=== PATIENT | female | born 1960 | race American Indian/Alaskan Native ===

== ENCOUNTER 2017-01-18 11:30 | Outpatient (CLI) | payer BC ==
--- NOTE | 2017-01-18 15:36 | Mammography Report ---
BILATERAL DIGITAL SCREENING MAMMOGRAM with CAD: 01/18/17 11:30:00 CLINICAL: Routine screening. COMPARISON:10/31/12 and 11/29/10 FINDINGS: The breasts are almost entirely fatty. A left upper outer irregular mass with a few calcifications requires additional imaging.No architectural distortion. The right breast is negative. IMPRESSION: Left upper outer mass requiring further workup. BI-RADS CATEGORY: 0 -- Additional Imaging Evaluation Required RECOMMENDATION: Recall for left mediolateral , spot magnification CC and ML views and left breast ultrasound. ACR BI-RADS MAMMOGRAPHIC CODES: 0 = Needs additional imaging evaluation; 1 = Negative; 2 = Benign; 3 = Probably benign; 4 = Suspicious; 5 = Malignant; 6 = Known biopsy-proven malignancy COMMENT: 1. Dense breast tissue, i.e., adenosis, fibrocystic changes, etc., may obscure an underlying neoplasm. 2. Approximately 10% of cancers are not detected with mammography. 3. A negative mammography report should not delay biopsy if a clinically suspicious mass is present. COMMENT: Patient follow-up letters are generated via our Fetch MD application.
== END 2017-01-18 11:31 | disposition home or self-care (01) ==
LOC: SPVIMAG 11:30
PROVIDERS: ATTEND Pediatrics
DX: Z12.31 Encounter for screening mammogram for malignant neoplasm of breast (principal)
CPT/HCPCS: 77067; G0202

== ENCOUNTER 2020-01-20 11:18 | Outpatient (CLI) | payer BC | END 2020-01-20 11:19 | disposition home or self-care (01) | LOC: LABHHL 11:18 | PROVIDERS: ATTEND Surgery | DX: C50.912 Malignant neoplasm of unspecified site of left female breast (principal) | CPT/HCPCS: 88342 ==

== ENCOUNTER 2020-01-26 15:37 | Outpatient (CLI) | payer BC ==
--- NOTE | 2020-01-27 08:24 | Ultrasound Report ---
COMPLETE LEFT BREAST ULTRASOUND HISTORY: Recently diagnosed left breast cancer. This study is being done to exclude additional diseas e. COMPARISON: Recent mammogram and targeted left breast ultrasound from [facility]. FINDINGS: Ultrasound of all 4 quadrants, the retroareolar area and the axilla was performed. Irregula r mass at 2:00 8 cm from the nipple measures 1.1 x 0.7 x 0.7 cm and corresponds to the known cancer. Relatively anechoic cyst at 1:30 o'clock 7 cm from the nipple measures 1.0 x 0.3 x 1.3 cm and a compl ex cyst at 1:00 4 cm from the nipple measures 5 x 5 x 2 mm. Ultrasound of the left axilla demonstrate d no suspicious lymph nodes. A left axillary lymph node with benign morphology measures 1.3 cm x 0.7 cm with a cortical thickness of 3 mm. IMPRESSION: 1. Known 1.1 cm left breast cancer at 2:00 8 cm from the nipple. 2. Benign cysts at 1:30 o'clock and at 1:00. 3. No suspicious lymph nodes. BIRADS 6: Known biopsy proven malignancy. Signer Name: Alcides Sheppard MD Signed: 01/27/2020 8:19 AM Workstation Name: [id number]
== END 2020-01-26 15:38 | disposition home or self-care (01) ==
LOC: SPVWC 15:37
PROVIDERS: ATTEND Surgery
DX: N63.21 Unspecified lump in the left breast, upper outer quadrant (principal); N60.02 Solitary cyst of left breast

== ENCOUNTER 2020-02-24 12:12 | Day surgery (SDC) | payer BC ==
[2020-02-22 10:00] LABS: Basophils # (Auto) 0.1 K/mm3 (0.0-0.1); Basophils % (Auto) 0.9 % (0.0-1.8); Eosinophils # (Auto) 0.1 K/mm3 (0.0-0.4); Eosinophils % (Auto) 1.4 % (0.0-4.3); Hematocrit 44.5 % (30.3-42.9); Hemoglobin 15.3 gm/dl (10.1-14.3); Lymphocytes # (Auto) 2.5 K/mm3 (1.2-5.4); Lymphocytes % (Auto) 35.2 % (13.4-35.0); Mean Corpuscular HGB Conc 35 % (30-34); Mean Corpuscular Volume 92 fl (79-97); Monocytes # (Auto) 0.6 K/mm3 (0.0-0.8); Monocytes % (Auto) 8.7 % (0.0-7.3); Platelet Count 279 K/mm3 (140-440); Red Blood Count 4.83 M/mm3 (3.65-5.03); Red Cell Distribution Width 13.4 % (13.2-15.2)
[2020-02-22 15:11] LABS: BUN/Creatinine Ratio 18; Blood Urea Nitrogen 16 mg/dL (7-17); Calcium 9.6 mg/dL (8.4-10.2)
--- NOTE | 2020-02-24 11:57 | Anesthesia Consultation ---
Anesthesia Consult and Med Hx Date of service: 02/24/20 - Airway Anesthetic Teeth Evaluation: Good, Partials (upper) ROM Head & Neck: Adequate Mental/Hyoid Distance: Adequate Mallampati Class: Class III Intubation Access Assessment: Possibly Difficult - Pulmonary Exam CTA: Yes - Cardiac Exam Cardiac Exam: RRR - Pre-Operative Health Status ASA Pre-Surgery Classification: ASA3 Proposed Anesthetic Plan: General Nerve Block: PEC - Pulmonary Hx Smoking: No Hx Respiratory Symptoms: No - Cardiovascular System Hx Hypertension: Yes (took amlodipine last night) Hx Heart Attack/AMI: No Hx Percutaneous Transluminal Coronary Angioplasty (PTCA): No - Central Nervous System CVA: No - Gastrointestinal Hx Gastroesophageal Reflux Disease: No - Endocrine Hx Renal Disease: No Hx Liver Disease: No Hx Insulin Dependent Diabetes: No Hx Non-Insulin Dependent Diabetes: No Hx Thyroid Disease: No - Hematic Hx Anemia: No - Other Systems Hx Cancer: Yes (breast ca) - Additional Comments Anesthesia Medical History Comments: No hx anesthetic complications.
--- NOTE | 2020-02-24 11:57 | Anesthesia Day of Surgery ---
Anesthesia Day of Surgery - Day of Surgery Patient Examined: Yes Patient H&P Reviewed: Yes Patient is NPO: Yes
[~2020-02-24 12:12] MED LIST: BUPIVACAINE-EPINEPHRINE/PF 0.5%-1:200,000 (30 ML) VIAL INFILTRATI ONE; CELECOXIB 200 MG CAP PO NR; GABAPENTIN 300 MG CAP PO NR; LACTATED RINGERS 1,000 ML IV SCH; MAGNESIUM OXIDE 400 MG TAB PO SCH; MIDAZOLAM 2 MG/2 ML INJ IV NR; ceFAZolin/STERILE WATER 2 GM/20 ML SYRINGE IV NR; dexAMETHasone 4 MG/ML VIAL ONE; fentaNYL 100 MCG/2 ML INJ IV PRN
[2020-02-24] MEDS ORDERED: METHYLENE BLUE 50 MG/10 ML AMP ONE (13:52)
[2020-02-24] MEDS ORDERED: propofoL 200 MG/20 ML VIAL IV ONE (14:00)
[2020-02-24] MEDS ORDERED: KETOROLAC 30 MG/1 ML INJ ONE ×2 (14:08→14:15)
[2020-02-24] MEDS ORDERED: ONDANSETRON 4 MG/2 ML INJ ONE ×3 (14:08→18:17)
[2020-02-24] MEDS ORDERED: HYDROmorphone 1 MG/1 ML INJ ONE (14:16)
[2020-02-24] MEDS ORDERED: LIDOCAINE MPF (2%) 20 MG/1 ML VIAL 5 ML ONE (14:16)
[2020-02-24] MEDS ORDERED: PHENYLEPHRINE/NS 1,000 MCG/10 ML SYRINGE (OR USE) IV ONE (15:39)
[2020-02-24] MEDS ORDERED: LACTATED RINGERS 1,000 ML ONE (15:39)
--- NOTE | 2020-02-24 16:13 | Short Stay Summary ---
Short Stay Documentation Date of service: 02/24/20 - History H&P: obtained from office - Allergies and Medications Current Medications: Allergies No Known Allergies Allergy (Unverified 02/17/20 16:12) Home Medications Medication Instructions Recorded Confirmed Last Taken Type HYDROcodone/APAP 5-325 [Cabazon 1 each PO Q6HR PRN #20 tablet 02/24/20 Unknown Rx 5/325] Hydrochlorothiazide 25 mg PO DAILY 02/24/20 02/24/20 02/23/20 19:00 History Lovastatin 20 mg PO HS 02/24/20 02/24/20 02/23/20 19:00 History amLODIPine 10 mg PO DAILY 02/24/20 02/24/20 02/23/20 19:00 History metFORMIN 500 mg PO BID 02/24/20 02/24/20 02/23/20 19:00 History Active Medications Cefazolin Sodium (Ancef/Sterile Water 2 Gm/20 Ml) 2 gm IV PREOP NR Stop: 02/24/20 22:00 Celecoxib (Celebrex) 200 mg PO PREOP NR Stop: 02/24/20 23:59 Last Admin: 02/24/20 12:10 Dose: 200 mg Documented by: Fentanyl (Sublimaze) 100 mcg IV ONCE PRN PRN Reason: sedation for nerve block Stop: 02/24/20 23:59 Last Admin: 02/24/20 12:38 Dose: 100 mcg Documented by: Gabapentin (Gabapentin) 600 mg PO PREOP NR Stop: 02/24/20 23:59 Last Admin: 02/24/20 12:10 Dose: 600 mg Documented by: Lactated Ringer's (Lactated Ringers) 1,000 mls @ 100 mls/hr IV DIRECT DOYLE Stop: 02/24/20 23:59 Last Admin: 02/24/20 12:35 Dose: 100 mls/hr Documented by: Magnesium Oxide (Mag-Ox) 400 mg PO PREOP DOYLE Stop: 02/24/20 23:59 Last Admin: 02/24/20 12:10 Dose: 400 mg Documented by: Midazolam HCl (Versed) 2 mg IV PREOP NR Stop: 02/24/20 23:59 Last Admin: 02/24/20 12:38 Dose: 2 mg Documented by: - Brief post op/procedure progress note Date of procedure: 02/24/20 Pre-op diagnosis: Left breast cancer of upper outer quadrant Post-op diagnosis: same Procedure: Left partial mastectomy with SLNB Anesthesia: GETA Findings: left breast mass with clip present; x2SLNs Surgeon: DEZ GERONIOM Needle Grinder: KARSTEN ALDRIDGE Estimated blood loss: minimal Pathology: list (left partial mastectomy, x2SLNs) Specimen disposition: to lab Condition: stable - Disposition Condition at discharge: Good Disposition: - TO HOME OR SELFCARE Short Stay Discharge Plan Activity: other (no heavy lifting) Diet: regular Wound: keep clean and dry (may shower in 48 hours; no baths, pools or lakes; wear breast binder) Follow up with: TERENCE MARCOS MD [Primary Care Provider] - 7 Days DEZ GERONIMO MD [Staff Physician] - 7 Days Prescriptions: HYDROcodone/APAP 5-325 [Cabazon 5/325] 1 each PO Q6HR PRN #20 tablet PRN Reason: Pain
--- NOTE | 2020-02-24 16:22 | Operative Report ---
Operative Report Operative Report: Operative Report: February 24, 2020 Preoperative diagnosis: Left breast cancer of the upper outer quadrant Postoperative diagnosis: Same Procedure: Ultrasound guided left partial mastectomy of the upper outer quadrant and SLNB Surgeon: Nicole Velasquez MD Certified Court Interpreter: Bettie Bowden MD Anesthesia: General Findings: Left breast mass and clip present within radiograph specimen; x2 SLN Complications: None EBL: Minimal Disposition: PACU in good condition Indications for operative procedure: This is a 59 year old lady with newly diagnosed left breast cancer of the upper outer quadrant, Stage I [id number] ER/SD positive (IDCA 2:00 position 8 cm from the nipple). Recommendations are to proceed with breast conservation. She understands the role of adjuvant radiation therapy and the role of Oncotype DX/Mammoprint. She wished to proceed with the above procedure. Procedure in detail: Anesthesia placed left pectoral block. Patient was then taken to the operating room. Gen. anesthesia was administered. The left nipple was injected with radioisotope and 1 cc of methylene blue dye with 1 cc of saline. Left breast and axilla were prepped and draped in the normal sterile operative fashion. Timeout was performed. Gamma probe was inserted into the axilla. The area of hot spot was identified. A left axillary incision was made with a 15 blade knife with dissection taken down to the subcutaneous tissues. The axillary fascia was opened with the Bovie cautery. 2 SLNs were identified. All remaining counts were less than 10% of the highest count. Lymph node was sent to pathology for permanent processing. Hemostasis was obtained in the right axillary cavity. Axillary cavity was appropriately irrigated and suctioned. Hemostasis was noted. Axillary fascia was approximated and closed using interrupted 3-0 Vicryl and the skin brought together and closed using a running 4-0 Monocryl followed by skin affix. Attention was then taken towards the left breast. Ultrasound was used to identify the known area of cancer, 2:00 position 8 cm FN. The breast was then appropriately marked for incision. A breast incision was made at 2:00 position with a 15 blade knife and dissection taken down to subcutaneous tissues. First began raising of the superior flap with dissection taken down to the pectoralis muscle, followed by raising of the inferior flap, medial flap and lateral flap with all flaps taken down to the pectoralis muscle. The breast area of concern was appropriately removed posteriorly from the pectoralis muscle with the aid of the Bovie cautery. Ultrasound used with good margins present.. Specimen was marked and then sent to pathology and radiology; radiograph specimen with breast mass and clip present. Breast cavity was irrigated and hemostasis was obtained. The posterior deep breast tissues were approximated and closed using interrupted 3-0 Vicryl. The subcutaneous tissues were approximated and closed using interrupted 3-0 Vicryl followed by closing of the skin with a running 4-0 Monocryl and skin affix. The patient tolerated surgery very well and she was awaken from anesthesia without any complication and transported to PACU in good condition.
[2020-02-24] MEDS ORDERED: INSULIN REGULAR, HUMAN 100 UNITS/1 ML ONE (16:27)
[2020-02-24] MEDS ORDERED: INSULIN REGULAR, HUMAN 100 UNITS/1 ML SUB-Q ONE (17:00)
[2020-02-24] MEDS ORDERED: INSULIN REGULAR, HUMAN 100 UNITS/1 ML IV ONE (17:20)
[2020-02-24 18:06] VITALS: BP 130/74
--- NOTE | 2020-02-24 18:11 | Post Anesthesia Evaluation ---
- Post Anesthesia Evaluation Patient Participated: Yes Airway Patent: Yes Stable Respiratory Function: Yes Nausea/Vomiting: No Temp > 96.8F: Yes Pain Manageable: Yes Adequeate Hydration: Yes Anesthesia Complications: No
[2020-02-24] MEDS ORDERED: ONDANSETRON 4 MG/2 ML INJ IV ONE (18:16)
--- NOTE | 2020-02-25 09:43 | Mammography Report ---
LEFT BREAST SPECIMEN RADIOGRAPH INDICATION / CLINICAL INFORMATION: Left breast cancer. COMPARISON: 01/05/2020. FINDINGS: The targeted small nodular density and associated biopsy clip are located within the central portion of the submitted breast specimen. Signer Name: Hector Valladares MD Signed: 02/25/2020 9:39 AM Workstation Name: [id number]
== END 2020-02-24 18:30 | disposition home or self-care (01) ==
LOC: OR 12:12
PROVIDERS: ATTEND Surgery
DX: C50.412 Malignant neoplasm of upper-outer quadrant of left female breast (principal); Z11.59 Encounter for screening for other viral diseases; E11.9 Type 2 diabetes mellitus without complications; I10 Essential (primary) hypertension; Z72.89 Other problems related to lifestyle; Z98.890 Other specified postprocedural states; Z79.84 Long term (current) use of oral hypoglycemic drugs
CPT/HCPCS: 19301; 36415; 38525; 38792; 76098; 78800; 80048; 82962; 85025; 88305; 88307; 88342; A9541; J0690; J1100; J1170; J1885; J2250; J2370; J2405; J2704; J3010; J7120; Q9968; U0003; 64450; J1815

== ENCOUNTER 2020-08-04 10:38 | Outpatient (CLI) | payer BC ==
--- NOTE | 2020-08-04 11:26 | Mammography Report ---
DIGITAL DIAGNOSTIC MAMMOGRAM WITH CAD CONVENTIONAL, 08/04/2020 CLINICAL INFORMATION / INDICATION: History of left breast cancer. TECHNIQUE: Digital left mammographic imaging was performed. This examination was interpreted with the benefit of Computer-aided Detection analysis. COMPARISON: 01/05/2020, 12/29/2019, 11/09/2019 FINDINGS: Breast Density: The breasts are almost entirely fatty. No dominant mass, suspicious calcifications or architectural distortion in the left breast. Expected postsurgical changes are seen in the upper outer left breast. IMPRESSION: No mammographic evidence of malignancy. Follow up recommendation: Routine yearly BI-RADS Category 2: Benign. A "normal" or negative report should not discourage follow up or biopsy of a clinically significant f inding. A written summary of these findings will be mailed to the patient. The patient will be entered into a mammography reporting system which will generate a reminder letter for the patient's next appointmen t at the appropriate interval. According to the [employer], yearly mammograms are recommended starting at age 40 and continuing as long as a woman is in good health. Breast MRI is recommended for women with an den roximately 20-25% or greater lifetime risk of breast cancer, including women with a strong family his tory of breast or ovarian cancer and women who have been treated for Hodgkin's disease. Signer Name: Socrates Velazquez MD Signed: 08/04/2020 11:21 AM Workstation Name: [email or web address]
== END 2020-08-04 10:39 | disposition home or self-care (01) ==
LOC: SPVWC 10:38
PROVIDERS: ATTEND Surgery
DX: N63.0 Unspecified lump in unspecified breast (principal); N64.89 Other specified disorders of breast

== ENCOUNTER 2020-11-10 09:02 | Outpatient (CLI) | payer BC ==
--- NOTE | 2020-11-10 10:01 | Mammography Report ---
DIGITAL DIAGNOSTIC MAMMOGRAM WITH CAD , 11/10/2020 CLINICAL INFORMATION / INDICATION: The patient has a personal history of left breast cancer treated w ith lumpectomy. She reports intermittent generalized left breast pain. TECHNIQUE: Digital bilateral mammographic imaging was performed. This examination was interpreted with the benefit of Computer-aided Detection analysis. COMPARISON: 08/04/2020, 12/29/2019, 11/09/2019, 01/18/2017 FINDINGS: Breast Density: There are scattered areas of fibroglandular density. No dominant mass, suspicious calcifications or architectural distortion in either breast. Stable post-lumpectomy changes are again noted in the upper outer left breast. IMPRESSION: No mammographic evidence of malignancy. Follow up recommendation: Routine yearly BI-RADS Category 2: Benign. A "normal" or negative report should not discourage follow up or biopsy of a clinically significant f inding. A written summary of these findings will be mailed to the patient. The patient will be entered into a mammography reporting system which will generate a reminder letter for the patient's next appointmen t at the appropriate interval. According to the [employer], yearly mammograms are recommended starting at age 40 and continuing as long as a woman is in good health. Breast MRI is recommended for women with an den roximately 20-25% or greater lifetime risk of breast cancer, including women with a strong family his tory of breast or ovarian cancer and women who have been treated for Hodgkin's disease. Signer Name: Gris Young MD Signed: 11/10/2020 9:57 AM Workstation Name: [id number]
== END 2020-11-10 09:03 | disposition home or self-care (01) ==
LOC: SPVWC 09:02
PROVIDERS: ATTEND Surgery
DX: C50.412 Malignant neoplasm of upper-outer quadrant of left female breast (principal); C50.411 Malignant neoplasm of upper-outer quadrant of right female breast; N64.89 Other specified disorders of breast
CPT/HCPCS: 77066